=== PATIENT | female | born 1950 | race Caucasian/White ===

== ENCOUNTER → 2021-10-10 09:41 | Outpatient (CLI) | payer MEDICARE, OTHER, SELFPAY ==
--- NOTE | 2021-10-10 | US_ITS ---
FINAL REPORT CLINICAL HISTORY: CAD, PAD, stents in carotid arteries, renal artery stents, HTN, hyperlipidemia, current smoker, bilateral claudication, bilateral rest pain. FINDINGS: COMPLETE ANKLE/BRACHIAL INDICES BILATERAL Complete ankle brachial indices was obtained. The right LUBA is 0.80. The left LUBA is 0.82. IMPRESSION: Mild peripheral arterial disease. Reviewed, Interpreted and Dictated by Kevin Araiza III, MD Transcribed by Rosalva Minaya Authenticated and [facility]
--- NOTE | 2021-10-10 09:44 | CA_ITS ---
APPROVED REPORT EXAM: Comprehensive 2D, Doppler, and color-flow Echocardiogram Electronic Tech: Nika Segura, AURELIA, RVS Ht: 5 ft 0 in Wt: 133lbs BSA: 1.57 BP: 151/86 mmHg Indications: COPD, Smoker, SOA, HTN, HLD, CHF, CAD multiple stent, AbnEKG 2D Dimensions IVSd 0.90 cm LVEF (Visual) 53.60 % PWd 0.76 cm LA Volume 30.40 mL LVDd 3.43 cm LA Volume Index 19.40 mL/m2 (M/F) 16-34 LVDs 2.51 cm Aortic Root 2.73 cm Left Atrium 2.81 cm LVOT 2.07 cm (M/F) 1.5-2.5 M-Mode Dimensions RVDd 3.43 cm (0.9-2.6) LA Diam 3.26 cm (1.9-4.0) LVDd 3.57 cm (3.5-5.7) Ao Diam 3.09 cm (2.0-3.7) LVDs 2.64 cm (3.5-5.7) IVSd 0.82 cm (0.6-1.1) PWd 0.89 cm (0.6-1.1) EF (Teich) 52.00% EPSs 0.57 cm FS 26.10% EDV (Teich) 53.30 mL TAPSE 1.29 (<1.7) ESV (Teich) 25.60 mL LV Diastology E Decel Time 223.00 (160-240 msec) E/A Ratio 0.90 MED E' 6.20 (< 7 cm/sec) MED A' 7.60 cm/s E'/MED E' Ratio 10.60 (>14) LAT E' 7.60 (<10 cm/sec) LAT A' 8.50 cm/s E/LAT E' Ratio 8.64 (>14) Aortic Valve LVOT Max 62.00 (70-110 cm/s) LVOT VTI 13.59 cm AoV Peak Hussein. 85.00 (50-130 cm/s) AO Peak GR. 2.90 mmHg AO Mean GR. 1.50 (<5 mmHg) AO VTI 18.87 (18-25 cm) REGINO (VTI) 2.42 (2.5-4.5 cm2) Mitral Valve MV A Velocity 73.00 (40-130 cm/s) E/A Ratio 0.90 MV Decel. Time 223.00 (160-240 ms) MV Mean Gr. 1.50 (<2mmHg) Pulmonary Valve PV Peak Velocity 79.00 (50-150 cm/s) Tricuspid Valve TR P. Velocity 331.00 cm/s RAP Estimate 10.00 mmHg RVSP 53.80 mmHg Left Ventricle Left atrium is mildly enlarged, left ventricle is normal size, mild concentric left ventricular hypertrophy, estimated ejection fraction 55%, with no regional wall motion abnormality, grade 1 diastolic dysfunction seen without tissue Doppler evidence of raise left atrial pressure, there is flattening of the interventricular septum during systole consistent with pressure overload on right ventricle. Right Ventricle Right atrium is moderately enlarged, right ventricle is moderately dilated with moderate reduction right ventricular contractility. Aortic Valve Aortic valve is minimally thickened and fibrosed there is no aortic stenosis or aortic insufficiency. Mitral Valve Mitral valve grossly normal, there is mild mitral regurgitation. Tricuspid Valve Tricuspid valve grossly normal, there is mild tricuspid regurgitation, calculated right ventricular systolic pressure is 53 mmHg. Pulmonic Valve Pulmonic valve is poorly visualized. Great Vessels Aortic root is normal size. Inferior vena cava normal size with normal inspiratory collapse. Pericardium No significant pericardial effusion noted. Conclusion 1. Biatrial enlargement, normal left ventricular size, mild concentric left ventricular hypertrophy, estimated ejection fraction 55% with no regional wall motion abnormality, grade 1 diastolic dysfunction seen without tissue Doppler evidence of raise left atrial pressure. There is flattening of the interventricular septum during systole consistent with pressure overload on right ventricle. 2. Moderately enlarged right ventricle moderate reduction right ventricular contractility. 3. Mild mitral and tricuspid regurgitation, calculated right ventricular systolic pressure is 53 mmHg. 4. No significant pericardial effusion noted. 5. Inferior vena cava is normal size with normal inspirator
[2021-10-10 11:45] LABS: Chloride 89 mmol/L (98-107); Potassium 4.2 mmoL/L (3.5-5.1); Sodium 138 mmol/L (136-145)
[2021-10-10 11:48] LABS: Blood Urea Nitrogen 13 mg/dl (7-17); Calcium 8.9 mg/dl (8.4-10.2); Estimated Glomerular Filt Rate 62 ml/min (>60); GFR (African American) 75 ML/MIN (>60); Glucose 122 mg/dl (74-100)
[2021-10-10 11:55] LABS: Anion Gap 15.2 mEq/L (5-15); Carbon Dioxide 38 mmol/L (22.0-30.0)
== END ==
PROVIDERS: PCP Family Medicine; Visit Provider Physician Assistant
DX: E78.5 Hyperlipidemia, unspecified (principal); I11.9 Hypertensive heart disease without heart failure; I25.118 Atherosclerotic heart disease of native coronary artery with other forms of angina pectoris; I65.23 Occlusion and stenosis of bilateral carotid arteries; I70.1 Atherosclerosis of renal artery; I73.9 Peripheral vascular disease, unspecified; J44.9 Chronic obstructive pulmonary disease, unspecified; R06.00 Dyspnea, unspecified; R07.89 Other chest pain; Z72.0 Tobacco use
CPT/HCPCS: 36415; 80048; 93306; 93923